=== PATIENT | male | born 1975 | race Caucasian/White ===

== ENCOUNTER 2024-07-15 17:57 | Emergency (ER) | payer MEDICARE ==
[~2024-07-15] VITALS: Ht 182.9 cm; Wt 108.0 kg
[2024-07-15] MEDS ORDERED: LIDOCAINE 2% W/ EPINEPHRINE 30 ML MDV STI ONE (18:45)
[2024-07-15] MEDS ORDERED: POVIDONE IODINE 0.5 OZ/BTL TOP ONE (18:45)
[2024-07-15] MEDS ORDERED: NEOMYCIN-BACITRACIN-POLYMYXIN 0.5 GM/PAK PAK TOP ONE (18:45)
[2024-07-15 19:22] VITALS: BP 174/75
== END 2024-07-15 19:23 | disposition home or self-care (01) ==
LOC: ED 17:57
PROC: 0HQ0XZZ Repair Scalp Skin, External Approach (ICD-10-PCS; principal; 2024-07-15)
DX: S01.01XA Laceration without foreign body of scalp, initial encounter (principal); W22.09XA Striking against other stationary object, initial encounter; Y92.009 Unspecified place in unspecified non-institutional (private) residence as the place of occurrence of the external cause; Z72.0 Tobacco use